=== PATIENT | female | born 1940 | race Two or more races ===

== ENCOUNTER 2025-01-25 15:24 | Inpatient (IN) | payer OTHER ==
[~2025-01-25] VITALS: Ht 154.9 cm; Wt 41.5 kg
--- NOTE | 2025-01-25 15:43 | ED.PDOC ---
History of Present Illness HPI Comments HPI: 84 y/o F, BIBA, presents to the ED for CC of abnormal labs. EMS reports, patient is coming from [facility] where provider called d/t patient's low hemoglobin of 5.1. Per EMS, patient's lab were drawn yesterday (01/24/25). No other symptoms or modifying factors are available at this time. Initial Vitals BP: HR: RR: O2 Sat: Temp: Past Medical history: HTN, HLD, PREVIOUS BLOOD TRANSFUSIONS. Past Surgical history: RIGHT HIP Fx Medications: HEPARIN, DILATED, LISINOPRIL Social History: Denies smoking, ETOH, and drug use. Allergies: NKDA HPI: Poor Historian. REVIEW OF SYSTEMS: CONSTITUTIONAL: Denies acute: fever, diaphoresis, chills, HEAD: Denies acute: headache, photophobia Eyes: Denies acute: Double vision, vision loss, eye pain, eye discharge. EARS: Denies acute: tinnitus, hearing loss, ear discharge, ear pain, THROAT: Denies acute: sore throat, swelling, difficulty swallowing , pain with swallowing, change in voice. NECK: Denies acute: neck pain, neck swelling, stiff neck. HEART: Denies acute : chest pain, palpitations, LUNGS: Denies acute: SOB, wheezing, cough, hemoptysis ABDOMEN: Denies acute: abdominal pain, Nausea, Vomiting, diarrhea, melena , hematemesis, hematochezia SKIN: Denies acute: rash, redness, lesions, itchiness. EXTREMITIES: Denies acute: calf pain, numbness, tingling, weakness, denies pain in extremity. Denies acute: Low back pain. Neuro: Denies acute: focal neurological deficit, motor or sensory focal neurological deficit, tremors, seizure like activity, confusion, dizziness, change in mental status, loss of bowel or bladder function, cauda equina like symptoms. : Denies acute: dysuria, hematuria, flank pain, increase in urinary frequency. PSYCH: Denies acute: hallucination, suicidal ideation, homicidal ideation. FEMALE: Denies acute: abnormal vaginal bleeding, foul odor, unusual discharge. PHYSICAL EXAM: General: ----no----acute distress, awake and alert. Head: normocephalic, atraumatic. No raccoon's eyes, no wilcox sign. Neck: supple, trachea is midline, no swelling. Throat: Normal phonation. Eyes:, no erythema, no purulent discharge, no proptosis, no icterus. Heart: regular rate, regular rhythm, no significant murmur appreciated. Lungs: no apparent respiratory distress, Able to speak in full sentences. No wheezing, no rhonchi, no crackles. No stridors Clear to auscultation bilaterally. Abdomen: non tender to palpation, non distended, soft, no guarding, no rebound, + bowel sounds. Neuro: Awake, Alert, oriented to name, self, situation, follows commands GCS=15. Speech is normal. Skin: no petechia, no purpura, no cyanosis, noted-pale, not jaundice. Lower extremities: --no - Pitting edema no deformity, no focal swelling, no calf TTP. Makes eye contact. moves all four extremities. Face: no apparent facial droop. ED COURSE: DISCLAIMER: This medical document was created using an electronic medical record system with voice recognition software and computerized dictation system. Although this d ocument has been carefully reviewed, there might still be some phonetic and typographical errors. Occasional wrong-word or "sound-alike" substitutions may have occurred due to the inherent limitations of voice recognition software. These areas are purely typographical due to imperfections of the software programs and do not reflect any compromise in the patient's medical care. Please read the chart carefully and recognize, using context, where these substitutions have occurred. Chief Complaint: Abnormal LAB's Time Seen by MD: 15:30 Reviewed Notes: Nurses Notes, Medications, Allergies Allergies: Coded Allergies: NO KNOWN ALLERGIES (Unverified , 01/25/25) Information Source: Patient Mode of Arrival: EMS Severity: Moderate Timing: Days Duration: Since onset Prehospital treatment: None Was a procedure done? Was a procedure done?: No Differential Dx Considerations may include: ANEMIA, electrolyte abnormality, sepsis, neoplasm, toxins, iron deficiency, blood loss X-Ray, Labs, Meds, VS Vital Signs Date Time Temp Pulse Resp B/P (MAP) Pulse Ox O2 Delivery O2 Flow Rate FiO2 01/25/25 17:30 70 16 111/45 (67) 100 01/25/25 17:30 98.1 70 16 111/45 98.1 01/25/25 17:10 97.8 71 16 124/46 97.8 01/25/25 15:55 Nasal Cannula* 2 28 01/25/25 15:53 98.1 71 15 117/46 (69) 98 98.1 01/25/25 15:40 Room Air* 0 21 01/25/25 15:37 98.1 72 18 125/52 97 98.1 Lab Test 01/25/25 15:38 Range/Units White Blood Count 8.4 4.4-10.8 10^3/uL Red Blood Count 1.84 L 4.0-5.20 10^6/uL Hemoglobin 5.7 *L 12.2-16.2 g/dL Hematocrit 17.7 L 36.0-46.0 % Mean Corpuscular Volume 96.2 80.0-100.0 fL Mean Corpuscular Hemoglobin 31.2 28.0-32.0 pg Mean Corpuscular Hemoglobin Concent 32.4 32.0-36.0 g/dL Red Cell Distribution Width 15.8 H 11.8-14.3 % Platelet Count 419 140-450 10^3/uL Mean Platelet Volume 5.9 L 6.9-10.8 fL Neutrophils (%) (Auto) 77.1 37.0-80.0 % Lymphocytes (%) (Auto) 12.3 10.0-50.0 % Monocytes (%) (Auto) 6.6 0.0-12.0 % Eosinophils (%) (Auto) 3.5 0.0-7.0 % Basophils (%) (Auto) 0.5 0.0-2.0 % Neutrophils # (Auto) 6.5 1.6-8.6 10 ^3/uL Lymphocytes # (Auto) 1.0 0.4-5.4 10 ^3/uL Monocytes # (Auto) 0.6 0-1.3 10 ^3/uL Eosinophils # (Auto) 0.3 0-0.8 10 ^3/uL Basophils # (Auto) 0 0-0.2 10 ^3/uL Nucleated Red Blood Cells 0.0 % Sodium Level 141 136-145 mmol/L Potassium Level 4.8 3.5-5.1 mmol/L Chloride Level 106 98-107 mmol/L Carbon Dioxide Level 27 20-31 mmol/L Anion Gap 8 5-15 Blood Urea Nitrogen 32 H 9-23 mg/dL Creatinine 1.18 H 0.550-1.02 mg/dL Glomerular Filtration Rate Calc 46 >90 mL/min BUN/Creatinine Ratio 27.1 H 10.0-20.0 Serum Glucose 103 74-106 mg/dL Calcium Level 8.1 L 8.7-10.4 mg/dL Iron Level 39 L 50-170 ug/dL Total Iron Binding Capacity 183 L 250-425 ug/dL Percent Iron Saturation 21.3 15-50 % Ferritin 328.1 H 10-291 ng/mL Total Bilirubin 1.0 0.2-1.0 mg/dL Aspartate Amino Transferase (AST) 16 13-40 U/L Alanine Aminotransferase (ALT) 11 7-40 U/L Alkaline Phosphatase 96 46-116 U/L Troponin I High Sensitivity 4 </=34 ng/L Total Protein 5.2 L 5.7-8.2 g/dL Albumin 3.0 L 3.2-4.8 g/dL Time of 1ST Reevaluation: 14:00 Reevaluation 1ST: Unchanged Time of 2ND Reevaluation: 19:38 (The case was discussed with the admitting team (HPI, physical exam, labs and diagnostic tests that were available at the time of disposition, ED course, treatment plan) on the phone. They agreed to admit the patient to their service and assume care of this patient from this point forward. UTILITY CLERK Yuli. ) Patient Education/Counseling: Diagnosis, Treatment Family Education/Counseling: No Family Present Comments MDM: patient presented with the above HPI.---anemia---workup was initiated. patient was found with the above mentioned diagnosis. the following medications were ordered: please refer to order lists of meds and tests obtained by myself Dr. Ge. Patient ED course and VS have been stabilized. Patient has been reassessed in the ED and remained in a stable condition. Pertinent incidental findings were discussed with the patient and/or family. Patient/family voices understanding and is agreeable with plan. Patient has been observed in the ED adequate length of time to insure improvement/stability. Escalation of care considered: Consideration of escalation to observation or admission Patient was consented for blood transfusion and blood transfusion initiated here in the ED. Patient was ADMITTED to the medicine team for further evaluation and treatment of their presentation. All the reports of any imaging studies that were ordered by myself were reviewed by myself. SEPSIS Sepsis Screen Physician Orders Type And Screen (01/25/25 15:33) Obtain Consent For: (01/25/25 16:04) Fall Risk Precautions In Place QSHIFT (01/25/25 19:34) Cardiac Diet-2gna,Lofat,Lochol (01/26/25 Breakfast) * Level Vial Inside Grinder Consult (01/25/25 ) Hemoglobin & Hematocrit (01/26/25 00:00) Hemoglobin & Hematocrit (01/26/25 06:00) Hemoglobin & Hematocrit (01/26/25 12:00) Hemoglobin & Hematocrit (01/26/25 18:00) Complete Blood Count (01/26/25 05:00) Complete Blood Count (01/27/25 05:00) Ondansetron Hcl (Zofran) (01/25/25 19:45) Famotidine Tablet (Pepcid Tablet) (01/26/25 10:00) Acetaminophen Tablet (Tylenol Tablet) (01/25/25 19:45) Basic Metabolic Panel (01/26/25 04:00) Pt Request For Service (01/25/25 19:43) Vital Signs Date Time Temp Pulse Resp B/P (MAP) Pulse Ox O2 Delivery O2 Flow Rate FiO2 01/25/25 17:30 70 16 111/45 (67) 100 01/25/25 17:30 98.1 70 16 111/45 98.1 01/25/25 17:10 97.8 71 16 124/46 97.8 01/25/25 15:55 Nasal Cannula* 2 28 01/25/25 15:53 98.1 71 15 117/46 (69) 98 98.1 01/25/25 15:40 Room Air* 0 21 01/25/25 15:37 98.1 72 18 125/52 97 98.1 Laboratory Tests Test 01/25/25 15:38 White Blood Count 8.4 10^3/uL (4.4-10.8) Departure 1 Departure Time of Disposition: 16:03 Impression: Primary Impression: Severe anemia Disposition: ADMITTED INPATIENT Admit to: Tele Condition: Guarded Discharged With: Self Critical Care Note Critical Care Time?: Yes (45 min-critical care time only) I personally scribed for ANISH GE DO ([email or web address]) on 01/25/25 at 15:43. Electronically submitted by Geri Stoll ([email or web address]). ANISH GE DO Jan 25, 2025 15:43
[2025-01-25 15:56] LABS: Hematocrit 17.7 % (36.0-46.0); Mean Corpuscular Hemoglobin 31.2 pg (28.0-32.0); Mean Corpuscular Volume 96.2 fL (80.0-100.0); Nucleated Red Blood Cells % 0.0 %
[2025-01-25 15:59] LABS: Hemoglobin 5.7 g/dL (12.2-16.2)
[2025-01-25 16:26] LABS: Alanine Aminotransferase 11 U/L (7-40); Albumin 3.0 g/dL (3.2-4.8); Alkaline Phosphatase 96 U/L (46-116); Anion Gap 8 (5-15); BUN/Creatinine Ratio 27.1 (10.0-20.0); Blood Urea Nitrogen 32 mg/dL (9-23); Calcium 8.1 mg/dL (8.7-10.4); Carbon Dioxide 27 mmol/L (20-31); Chloride 106 mmol/L (98-107); Glucose 103 mg/dL (74-106); Potassium 4.8 mmol/L (3.5-5.1); Sodium 141 mmol/L (136-145); Total Protein 5.2 g/dL (5.7-8.2)
[2025-01-25 16:27] LABS: Bilirubin, Total 1.0 mg/dL (0.2-1.0)
[2025-01-25 17:10] VITALS: BP 124/46; PULSE 71; RESP 16; TEMP 97.8
[2025-01-25 17:30] VITALS: BP 111/45; PULSE 70; RESP 16; TEMP 98.1
[2025-01-25] MEDS ORDERED: ONDANSETRON HCL 4 MG/2 ML VIAL IV PRN (19:45)
[2025-01-25] MEDS ORDERED: ACETAMINOPHEN 325 MG TAB PO PRN (19:45)
[2025-01-25 20:42] LABS: Iron 39.0 ug/dL (50-170); Total Iron Binding Capacity 183.0 ug/dL (250-425)
[2025-01-25 21:00] VITALS: BP 123/50; PULSE 64; RESP 18; TEMP 98.6
[2025-01-25 22:13] VITALS: BP_SYST 132; BP_SYST 133; BP_DIAS 49; BP_DIAS 59; PULSE 62; RESP 16; RESP 17; RESP 18; TEMP 97.6; O2SAT 92; O2SAT 99
[2025-01-25 23:30] VITALS: BP 134/60; PULSE 62; RESP 18; TEMP 98
[2025-01-25 23:50] VITALS: BP 120/59; PULSE 62; RESP 16; TEMP 97.8
[2025-01-26] VITALS (8 sets, daily range): BP systolic 120–158; BP diastolic 49–69; PULSE 60–89; RESP 15–17; TEMP 97.4–98.2; O2SAT 97–100
[2025-01-26] MEDS ORDERED: ZOFR4T PO (00:57)
[2025-01-26] MEDS ORDERED: HYDR-4564 PO (00:57)
[2025-01-26] MEDS ORDERED: HYDR-2792 PO (00:57)
[2025-01-26] MEDS ORDERED: ATOR10TA PO (00:57)
[2025-01-26] MEDS ORDERED: LISI10TA34 PO (00:57)
[2025-01-26] MEDS ORDERED: OMEP-434 PO (00:57)
--- NOTE | 2025-01-26 02:18 | DVHHP2 ---
Admitting Diagnosis: Severe Anemia History of Present Illness History Source: Patient Exam Limitations: No limitations HPI Mrs. Melisa Baldwin is an 84 year old female with a history of hypertension, hyperlipidemia, right hip replacement couple of months ago, presents with a chief complaint of abnormal labs. Patient came from [facility] where provider called d/t patient's low hemoglobin of 5.1. It was reported patients labs were drawn Friday. Patient denies dizziness, headaches, fevers, chills, abdominal pain, melena, hematuria, hematochezia. Home Meds Reported Medications Hydromorphone HCl (Hydromorphone HCl) 2 Mg Tab, 0.5 MG PO Q4HPRN PRN for PAIN SCALE 7 THRU 10, TAB 01/26/25 Ondansetron Odt 4MG Tab (ZOFRAN PO) 4 Mg Tb, 4 MG PO PRN for NAUSEA / VOMITING, TAB ODT TAB-DISSOLVE IN MOUTH, THEN SWALLOW 01/26/25 Omeprazole Magnesium (Omeprazole) 20 Mg Tab, 20 MG PO DAILY, TAB 01/26/25 Atorvastatin Calcium (Lipitor) 10 Mg Tab, 1 TAB PO QPM, #90 TAB 1 Refill 01/26/25 Hydralazine Hcl (Hydralazine Hcl) 10 Mg Tab, 10 MG PO PRN for SBP>180 for 30 Days, MG 01/26/25 Lisinopril (Lisinopril) 10 Mg Tab, 10 MG PO DAILY for 30 Days, MG 01/26/25 Past Medical History Cardiac: HTN, Hyperlipidemia Past Surgical History: Total hip replacement Patient Family History: Patient reports no known family medical history. Smoker: No Hx (Negative) Alocohol: None Drugs: None Lives with: Other (rehab center) Domestic Violence: Neg Review of Systems Comments low hemoglobin H&P Exam Vital Signs Vital Signs Date Time Temp Pulse Resp B/P (MAP) Pulse Ox O2 Delivery O2 Flow Rate FiO2 01/26/25 00:00 97.8 62 17 120/59 (79) 99 97.8 01/25/25 22:13 Nasal Cannula* 2 28 General Appeara: Well developed, Well nourished, Normal Appearance Head Exam: Normal inspection Neck Exam: Normal inspection, Non-tender, Normal alignment Eye Exam: bilateral eye Normal inspection, bilateral eye PERRL, bilateral eye EOMI Ear Exam: bilateral ear Auricle normal Nasal Exam: Normal inspection Mouth: Normal Inspection Pulmonary/Respiratory: Normal inspection, Normal breath sounds, Chest non- tender, Lungs clear Cardiovascular/Chest: Normal inspection, Regular rate, Normal Rhythm Peripheral Pulses: 2+ dorsalis pedis (R), 2+ dorsalis pedis (L), 2+ Radial (R), 2+ Radial (L) Abdominal Exam: Normal bowel sounds, Soft, No tenderness Hip exam: Normal inspection, Non-tender INDUSTRIAL THERAPIST Exam: Normal hearing, Normal speech, PERRL Motor/Sensory: Normal sensory function, Normal motor function Neuro/Mental St: Alert, Oriented Appearance: Appropriate appearance, Appropriate insight Eye contact/ Speech: Cooperative, Good eye contact, Normal speech Skin Exam: Normal inspection, Warm/dry, Pallor SEPSIS Sepsis Screen Date sepsis recognized/suspect: Jan 25, 2025 Time Sepsis recognized/suspect: 1529 Recent Procedure: No On Antibiotic Therapy: No Respiratory Rate >20: No Heart Rate >90: No Temp<36 C (96.8 F) or >38.3 C: No SBP <90 or MAP <65 mmHG: No New Acute Mental Status Change: No Is the patient on CPAP, BIPAP,: No Physician Orders Fall Risk Precautions In Place QSHIFT (01/25/25 19:34) Cardiac Diet-2gna,Lofat,Lochol (01/26/25 Breakfast) * Neurological Surgeon Consult (01/25/25 ) Hemoglobin & Hematocrit (01/26/25 12:00) Hemoglobin & Hematocrit (01/26/25 18:00) Complete Blood Count (01/26/25 05:00) Complete Blood Count (01/27/25 05:00) Ondansetron Hcl (Zofran) (01/25/25 19:45) Famotidine Tablet (Pepcid Tablet) (01/26/25 10:00) Acetaminophen Tablet (Tylenol Tablet) (01/25/25 19:45) Basic Metabolic Panel (01/26/25 04:00) Pt Request For Service (01/25/25 19:43) Admit (01/25/25 19:46) Stat Ekg For Chest Pain (01/25/25 19:46) Notify Md Of Changes From Base (01/25/25 19:46) Manager Clinic For 24 Hours (01/25/25 19:46) Emergency Dysrhythmia Protocol (01/25/25 19:46) Rhythm Strips Once Every Shift (01/25/25 19:46) Oxygen By Nasal Cannula (01/25/25 19:46) Mrsa Screen (01/25/25 23:45) * Dietary Consult (01/26/25 00:47) Hemoglobin & Hematocrit (01/26/25 02:12) Vital Signs Date Time Temp Pulse Resp B/P (MAP) Pulse Ox O2 Delivery O2 Flow Rate FiO2 01/26/25 00:00 97.8 62 17 120/59 (79) 99 97.8 01/25/25 23:50 97.8 62 16 120/59 97.8 01/25/25 23:30 98.0 62 18 134/60 98.0 01/25/25 23:30 98.0 62 18 134/60 98.0 01/25/25 22:13 97.6 62 17 132/49 (76) 92 97.6 01/25/25 22:13 97.6 62 16 133/59 (83) 92 97.6 01/25/25 22:13 62 18 99 Nasal Cannula* 2 28 01/25/25 21:49 64 18 123/50 (74) 100 01/25/25 21:00 98.6 64 18 123/50 98.6 01/25/25 19:57 Nasal Cannula* 2 28 01/25/25 19:56 73 16 146/58 (87) 99 Laboratory Tests Test 01/25/25 15:38 White Blood Count 8.4 10^3/uL (4.4-10.8) Labs/Xrays Labs Test 01/25/25 15:38 Range/Units White Blood Count 8.4 4.4-10.8 10^3/uL Red Blood Count 1.84 L 4.0-5.20 10^6/uL Hemoglobin 5.7 *L 12.2-16.2 g/dL Hematocrit 17.7 L 36.0-46.0 % Mean Corpuscular Volume 96.2 80.0-100.0 fL Mean Corpuscular Hemoglobin 31.2 28.0-32.0 pg Mean Corpuscular Hemoglobin Concent 32.4 32.0-36.0 g/dL Red Cell Distribution Width 15.8 H 11.8-14.3 % Platelet Count 419 140-450 10^3/uL Mean Platelet Volume 5.9 L 6.9-10.8 fL Neutrophils (%) (Auto) 77.1 37.0-80.0 % Lymphocytes (%) (Auto) 12.3 10.0-50.0 % Monocytes (%) (Auto) 6.6 0.0-12.0 % Eosinophils (%) (Auto) 3.5 0.0-7.0 % Basophils (%) (Auto) 0.5 0.0-2.0 % Neutrophils # (Auto) 6.5 1.6-8.6 10 ^3/uL Lymphocytes # (Auto) 1.0 0.4-5.4 10 ^3/uL Monocytes # (Auto) 0.6 0-1.3 10 ^3/uL Eosinophils # (Auto) 0.3 0-0.8 10 ^3/uL Basophils # (Auto) 0 0-0.2 10 ^3/uL Nucleated Red Blood Cells 0.0 % Sodium Level 141 136-145 mmol/L Potassium Level 4.8 3.5-5.1 mmol/L Chloride Level 106 98-107 mmol/L Carbon Dioxide Level 27 20-31 mmol/L Anion Gap 8 5-15 Blood Urea Nitrogen 32 H 9-23 mg/dL Creatinine 1.18 H 0.550-1.02 mg/dL Glomerular Filtration Rate Calc 46 >90 mL/min BUN/Creatinine Ratio 27.1 H 10.0-20.0 Serum Glucose 103 74-106 mg/dL Calcium Level 8.1 L 8.7-10.4 mg/dL Iron Level 39 L 50-170 ug/dL Total Iron Binding Capacity 183 L 250-425 ug/dL Percent Iron Saturation 21.3 15-50 % Ferritin 328.1 H 10-291 ng/mL Total Bilirubin 1.0 0.2-1.0 mg/dL Aspartate Amino Transferase (AST) 16 13-40 U/L Alanine Aminotransferase (ALT) 11 7-40 U/L Alkaline Phosphatase 96 46-116 U/L Troponin I High Sensitivity 4 </=34 ng/L Total Protein 5.2 L 5.7-8.2 g/dL Albumin 3.0 L 3.2-4.8 g/dL Assessment/Plan Problem List: (1) Severe anemia Plan This is an 84 yo female with known history of hypertension, hyperlipidemia, right hip replacement, anemia who presents to the hospital with abnormal lab of low hemoglobin sent from [facility]. Patient found to have 1. Severe Anemia 2. Hypertension 3. Hyperlipidemia 4. Recent right hip replacement 5. Anemia Plan Admit Telemetry Transfuse 2 units PRBC;s serial H&H every 6 hours Daily CBC Iron Panel, Ferritin level Fall Precautions GI ppx PT evaluation Social Service consultation Discussed all above with patient who verbalizes agreement and understanding of care plan. All questions were answered. Plan discussed with: Patient, Other Code Visit Code Visit Total Time (mins): 45 ADALGISA YEAGER DATA COMPILER Jan 26, 2025 02:18
[2025-01-26] MEDS ORDERED: hydrALAZINE HCL 20 MG/ML VL IV PRN (06:00)
[2025-01-26 06:23] LABS: Hematocrit 32.0 % (36.0-46.0); Hemoglobin 11.1 g/dL (12.2-16.2); Mean Corpuscular Hemoglobin 30.5 pg (28.0-32.0); Mean Corpuscular Volume 87.8 fL (80.0-100.0); Nucleated Red Blood Cells % 0.0 %
[2025-01-26 06:29] LABS: Anion Gap 8 (5-15); Carbon Dioxide 24 mmol/L (20-31); Potassium 4.7 mmol/L (3.5-5.1); Sodium 141 mmol/L (136-145)
[2025-01-26 06:35] LABS: BUN/Creatinine Ratio 25.5 (10.0-20.0); Glucose 90 mg/dL (74-106)
[2025-01-26 06:38] LABS: Blood Urea Nitrogen 28 mg/dL (9-23); Calcium 8.5 mg/dL (8.7-10.4); Chloride 109 mmol/L (98-107)
[2025-01-26] MEDS: FAMOTIDINE 20 MG TAB PO SCH (09:39)
[2025-01-26] MEDS: LISINOPRIL 20 MG TAB PO SCH (09:40)
[2025-01-26] MEDS ORDERED: PATIENTS OWN MEDICATION (Lisinopril 10 MG) PO SCH (10:00)
[2025-01-26 12:47] LABS: Hematocrit 30.4 % (36.0-46.0); Hemoglobin 10.5 g/dL (12.2-16.2); Mean Corpuscular Hemoglobin 30.7 pg (28.0-32.0); Mean Corpuscular Volume 88.8 fL (80.0-100.0); Nucleated Red Blood Cells % 0.0 %
--- NOTE | 2025-01-26 12:59 | DVHDS2 ---
Discharge Summary Date of Admission Jan 25, 2025 at 19:46 Date of Discharge: Jan 26, 2025 Labs/Diagnostic Data: Laboratory Results Test 01/26/25 11:50 01/26/25 05:12 01/25/25 15:38 White Blood Count 8.6 10^3/uL (4.4-10.8) Red Blood Count 3.42 10^6/uL (4.0-5.20) Hemoglobin 10.5 g/dL (12.2-16.2) Hematocrit 30.4 % (36.0-46.0) Mean Corpuscular Volume 88.8 fL (80.0-100.0) Mean Corpuscular Hemoglobin 30.7 pg (28.0-32.0) Mean Corpuscular Hemoglobin Concent 34.6 g/dL (32.0-36.0) Red Cell Distribution Width 16.6 % (11.8-14.3) Platelet Count 304 10^3/uL (140-450) Mean Platelet Volume 6.4 fL (6.9-10.8) Neutrophils (%) (Auto) 82.6 % (37.0-80.0) Lymphocytes (%) (Auto) 7.9 % (10.0-50.0) Monocytes (%) (Auto) 6.9 % (0.0-12.0) Eosinophils (%) (Auto) 2.3 % (0.0-7.0) Basophils (%) (Auto) 0.3 % (0.0-2.0) Neutrophils # (Auto) 7.1 10 ^3/uL (1.6-8.6) Lymphocytes # (Auto) 0.7 10 ^3/uL (0.4-5.4) Monocytes # (Auto) 0.6 10 ^3/uL (0-1.3) Eosinophils # (Auto) 0.2 10 ^3/uL (0-0.8) Basophils # (Auto) 0 10 ^3/uL (0-0.2) Nucleated Red Blood Cells 0.0 % Sodium Level 141 mmol/L (136-145) Potassium Level 4.7 mmol/L (3.5-5.1) Chloride Level 109 mmol/L (98-107) Carbon Dioxide Level 24 mmol/L (20-31) Anion Gap 8 (5-15) Blood Urea Nitrogen 28 mg/dL (9-23) Creatinine 1.10 mg/dL (0.550-1.02) Glomerular Filtration Rate Calc 50 mL/min (>90) BUN/Creatinine Ratio 25.5 (10.0-20.0) Serum Glucose 90 mg/dL (74-106) Calcium Level 8.5 mg/dL (8.7-10.4) Iron Level 39 ug/dL (50-170) Total Iron Binding Capacity 183 ug/dL (250-425) Percent Iron Saturation 21.3 % (15-50) Ferritin 328.1 ng/mL (10-291) Total Bilirubin 1.0 mg/dL (0.2-1.0) Aspartate Amino Transferase (AST) 16 U/L (13-40) Alanine Aminotransferase (ALT) 11 U/L (7-40) Alkaline Phosphatase 96 U/L (46-116) Troponin I High Sensitivity 4 ng/L (</=34) Total Protein 5.2 g/dL (5.7-8.2) Albumin 3.0 g/dL (3.2-4.8) Other Laboratory Tests 01/26/25 11:50 01/26/25 05:12 Brief Hx & Hospital Course: 84-year-old female with a known history of hypertension, dyslipidemia, GERD, recent history of right hip surgery two weeks ago at [facility] presented to the hospital from [place] with a abnormal labs. Patient's routine labs were Cheks hemoglobin was found to have 5.1. Patient's hemoglobin in the ER upon arrival was 5.7. Patient's was recommended to be admitted for blood transfusion. Patient underwent 2 units of packed RBC. Patient denies any hematemesis hematochezia melena dysuria hematuria. Denies any lightheadedness dizziness. Patient is being discharged to long-term facility for physical therapy. Patient's current hemoglobin is 11. Plan of care discussed with the patient and patient's daughter at bedside, who agrees to current plan of care. Condition at Discharge: Stable Final Diagnosis/Problems List Severe anemia status post 2 units of packed RBC. Status post right hip ORIF were two weeks ago Hypertension Dyslipidemia [facility]charge [facility] Discharge Will this Physician continue t: No Discharge Instruct/Medications Diet: Cardiac 2g Na,low cholest Activity: See Comment Activity comment: as tolerated with a assistance of physical therapist. Follow Up/Referral: Please follow up with the PCP in 1-2 weeks Follow up with the Orthopedics in 1-2 weeks Medications: Resume home medications. Scheduled Atorvastatin Calcium (Lipitor), 1 TAB PO QPM, (Reported) Lisinopril (Lisinopril), 10 MG PO DAILY, (Reported) Omeprazole Magnesium (Omeprazole), 20 MG PO DAILY, (Reported) Scheduled PRN Hydralazine Hcl (Hydralazine Hcl), 10 MG PO for SBP>180, (Reported) Hydromorphone HCl (Hydromorphone HCl), 0.5 MG PO Q4HPRN PRN for PAIN SCALE 7 THRU 10, (Reported) Ondansetron Odt 4MG Tab (Zofran Po), 4 MG PO for NAUSEA / VOMITING, (Reported) Discharge Statement: "Patient was advised to return to the ER or call 911 if any headaches, dizziness, shortness of breath, chest pain, abdominal pain, bleeding, fevers, or worsening of medical condition. Patient was counseled about treatment plan, medications, possible side effects, patientverbalized understanding. All questions were answered to the best of my ability. This discharge took greater then 30 minutes in planning, reviewing documentation, counseling the patient, and discussing with other team members." ASSESSMENT ASSESSMENT Assessment Severe anemia status post 2 units of packed RBC. Status post right hip ORIF were two weeks ago Hypertension Dyslipidemia Date of Service: Jan 26, 2025 Billing Provider: ADRIANNA JAY MD Common Visit Codes: NOT BILLABLE ADRIANNA JAY MD Jan 26, 2025 12:59
[2025-01-26] MEDS: HYDROcodone-ACET 5/325MG TAB PO PRN (14:43)
[2025-01-26] MEDS ORDERED: PATIENTS OWN MEDICATION (Atorvastatin Calcium (Lipitor) 1 TAB) PO SCH (18:00)
[2025-01-26 18:24] LABS: Hematocrit 32.3 % (36.0-46.0); Hemoglobin 10.7 g/dL (12.2-16.2)
[2025-01-26] MEDS ORDERED: ATORVASTATIN 20 MG TAB PO SCH (22:00)
== END 2025-01-26 18:23 | DRG 811 ==
LOC: EDBD 15:24 → ER 15:24 → OVERFLOW 19:46 → TELE-WESTW 22:10
PROVIDERS: ADMIT Nurse Practitioner Family; ATTEND Nurse Practitioner Family
PROC: 30233N1 Transfusion of Nonautologous Red Blood Cells into Peripheral Vein, Percutaneous Approach (ICD-10-PCS; principal; 2025-01-25)
DX: D50.9 Iron deficiency anemia, unspecified (principal); E43 Unspecified severe protein-calorie malnutrition; I10 Essential (primary) hypertension; Z68.1 Body mass index [BMI] 19.9 or less, adult; E78.5 Hyperlipidemia, unspecified; K21.9 Gastro-esophageal reflux disease without esophagitis; Z96.641 Presence of right artificial hip joint; Z87.891 Personal history of nicotine dependence; R63.6 Underweight
CPT/HCPCS: 36415; 80048; 80053; 82728; 83540; 83550; 84484; 85014; 85018; 85025; 86850; 86900; 86901; 86920; 87081; 97116; 97163; 97530; 99291; G0378